=== PATIENT | female | born 2000 | race Caucasian/White ===

== ENCOUNTER 2024-01-18 00:15 | Inpatient (IN) | payer OTHER ==
[2024-01-18] MEDS ORDERED: Morphine 4 MG/ML VIAL ONE (00:37)
[2024-01-18] MEDS ORDERED: Ondansetron PF 4 MG/2 ML Vial ONE (00:37)
[2024-01-18 00:59] LABS: Hematocrit 33.1 % (34.9-44.5); Hemoglobin 11.9 g/dL (12.0-15.5); Mean Platelet Volume 8.3 fl (7.4-10.4); Platelet Count 137 10x3/uL (150-450); RBC Distribution Width 13.2 % (11.5-14.5); Red Blood Cell (RBC) Count 3.72 10x6/uL (3.90-5.03); White Blood Cell (WBC) Count 2.9 10x3/uL (3.5-10.5)
[2024-01-18 01:09] LABS: ALT (SGPT) 61 U/L (8-55); AST (SGOT) 60 U/L (5-34); Albumin 3.5 g/dL (3.5-5.0); Alkaline Phosphatase 49 U/L (40-110); Anion Gap 15 mmol/L (10-20); BUN (Urea Nitrogen) 8 mg/dL (7.0-18.7); Bilirubin, Total 0.9 mg/dL (0.2-1.2); Calc. Creatinine Clearance 0 mL/min (70-130); Calcium 8.4 mg/dL (7.8-10.44); Carbon Dioxide 15 mmol/L (22-29); Chloride 107 mmol/L (98-107); Estimated GFR 123; Globulin 2.4 g/dL (2.4-3.5); Glucose 131 mg/dL (70-105); Protein, Total 5.9 g/dL (6.0-8.3); Sodium 133 mmol/L (136-145)
[2024-01-18 01:15] LABS: MDiff Complete? YES
[2024-01-18 01:20] LABS: Band 67 % (5-11); Lymphocytes 9 % (21-51); Metamyelocyte 5 % (0-0); Neutrophil 19 % (42-75)
[2024-01-18 01:21] LABS: Reflex for Review?? YES
[2024-01-18 01:23] LABS: Platelet Adequacy Comment Appears Decreased; RBC Morph Comment Within Normal Limits; Toxic Granulation SLIGHT; Vacuoles SLIGHT
[2024-01-18] MEDS ORDERED: Acetaminophen 325 MG TAB ONE (01:44)
[2024-01-18 01:55] LABS: Bilirubin Neg (Negative); Blood, Urine 10 (Negative); Clarity Clear (Clear); Glucose, Urine (Dipstick) Normal (Negative); Ketone, Urine 5 mg/dL (Negative); Leukocyte Negative (Negative); Nitrite Negative (Negative); Protein, Urine (Dipstick) 30 mg/dl (Neg-Trace)
[2024-01-18 02:17] LABS: Bacteria/HPF 1+ HPF (None Seen); CAUTI Indications for Culture Pregnancy; RBC/HPF 0-3 HPF (0-3); Squamous Epithelial 0-3 HPF (0-3); WBC/HPF 0-3 HPF (0-3)
[2024-01-18 02:18] LABS: Urine Culture Reflex Yes Yes
[2024-01-18 02:31] LABS: Influenza A by NAA Not Detected (NotDetected); Influenza B by NAA Not Detected (NotDetected); SARS-CoV-2 NAA Rapid Test Not Detected (NotDetected)
[2024-01-18] MEDS ORDERED: Vancomycin 1 GM VIAL ONE (02:53)
[2024-01-18] MEDS ORDERED: Cefepime 2 GM VIAL ONE (02:53)
[2024-01-18] MEDS ORDERED: Piperacillin/Tazobactam 3.375 GM VIAL ONE ×2 (03:15→09:38)
[2024-01-18] MEDS ORDERED: Piperacillin/Tazobactam 3.375 GM in Sodium Chloride 0.9% 100 ML IVPB SCH (03:30)
[2024-01-18] MEDS ORDERED: [UNRECOGNIZED DRUG - REMARK] FS PRN (03:59)
[2024-01-18 04:31] LABS: Lactic Acid 1.5 mmol/L (0.5-2.2)
[2024-01-18 04:32] VITALS: BMI 28.0
[2024-01-18] MEDS: Fioricet 325/50/40 mg Tablet PO SCH (04:35)
[2024-01-18] MEDS: Sodium Chloride 0.9% 1,000 ML IV SCH (04:44)
[2024-01-18] MEDS: Vancomycin 1.5 GM, Admixture Fee 1 EACH in Sodium Chloride 0.9% 250 ML 300 ML IVPB SCH (04:45)
[2024-01-18] MEDS ORDERED: Vancomycin 1.5 GM in Sodium Chloride 0.9% 250 ML 300 ML IVPB SCH (04:45)
[2024-01-18] MEDS ORDERED: Morphine 2 MG/ML VIAL ONE (04:56)
[2024-01-18] MEDS: Morphine 2 MG/ML VIAL SLOW IVP PRN (04:59)
[2024-01-18 05:33] LABS: Magnesium 1.3 mg/dL (1.6-2.6)
[2024-01-18] MEDS ORDERED: Magnesium 2 GM/50 ML BAG (IN WATER) ONE (07:12)
[2024-01-18 07:15] LABS: INR-International Normal Ratio 1.1; PTT 30.4 sec (22.0-33.0); Prothrombin Time 11.8 sec (9.5-12.1)
[2024-01-18 07:19] LABS: Anion Gap 12 mmol/L (10-20); BUN (Urea Nitrogen) 6 mg/dL (7.0-18.7); Calc. Creatinine Clearance 150 mL/min (70-130); Calcium 7.4 mg/dL (7.8-10.44); Carbon Dioxide 15 mmol/L (22-29); Chloride 112 mmol/L (98-107); Estimated GFR 126; Glucose 170 mg/dL (70-105); Potassium 2.9 mmol/L (3.5-5.1); Sodium 136 mmol/L (136-145)
[2024-01-18] MEDS: Magnesium 2 GM/50 ML(in water) 2 GM in Premix 1 BAG IVPB SCH (07:35)
[2024-01-18 07:43] LABS: Hematocrit 25.9 % (34.9-44.5); Hemoglobin 9.1 g/dL (12.0-15.5); Mean Corpuscular HGB CONC 35.1 g/dL (32.0-36.0); Mean Corpuscular Hemoglobin 31.7 pg (27.0-33.0); Mean Corpuscular Volume 90.2 fl (81.6-98.3); Mean Platelet Volume 8.6 fl (7.4-10.4); Platelet Count 131 10x3/uL (150-450); RBC Distribution Width 13.6 % (11.5-14.5); Red Blood Cell (RBC) Count 2.87 10x6/uL (3.90-5.03); White Blood Cell (WBC) Count 8.6 10x3/uL (3.5-10.5)
[2024-01-18] MEDS ORDERED: HYDROcodone/Acetaminophen 5/325 mg Tablet ONE (07:48)
[2024-01-18] MEDS ORDERED: Ondansetron ODT 4 MG TAB ONE (07:49)
[2024-01-18 07:52] LABS: MDiff Complete? YES
[2024-01-18] MEDS: Ondansetron ODT 4 MG TAB PO PRN (07:54)
[2024-01-18 07:56] LABS: Band 15 % (5-11); Lymphocytes 2 % (21-51); Monocytes 3 % (0-10); Neutrophil 80 % (42-75)
[2024-01-18 08:10] LABS: Platelet Adequacy Comment Appears Decreased; RBC Morph Comment Within Normal Limits; Vacuoles SLIGHT
[2024-01-18] MEDS: Enoxaparin 40 MG (0.4 mL) SYRINGE SC SCH (08:33)
[2024-01-18] MEDS ORDERED: Potassium Chloride 20 MEQ TAB ONE (08:35)
[2024-01-18] MEDS: Potassium Chloride 20 MEQ TAB PO SCH (09:00)
[2024-01-18] MEDS: HYDROcodone/Acetaminophen 5/325 mg Tablet PO PRN (09:33)
[2024-01-18] MEDS: Lactated Ringer's 1,000 ML IV SCH (09:35)
[2024-01-18 09:36] LABS: Analyzer IN Cardio CS ER; Base Excess -7.6 mEq/L (-2 - +2); Calcium, Ionized (venous) 1.04 mmol/L (1.16-1.32); Chloride (VBG) 109 mmol/L (98-106); Hematocrit-VBG 34 % (36.0-47.0); Hemoglobin (Hb) 11.6 g/dL (11.7-15.5); Potassium (VBG) 3.45 mmol/L (3.70-5.30); Puncture Site Other Site; RapidComm Collect By LAB; Sodium 137 mmol/L (133-146); pH (venous) 7.389 (7.32-7.43)
[2024-01-18 09:46] LABS: Hematocrit 29.7 % (34.9-44.5); Hemoglobin 10.4 g/dL (12.0-15.5); Mean Corpuscular Hemoglobin 32.2 pg (27.0-33.0); Mean Platelet Volume 8.5 fl (7.4-10.4); Platelet Count 140 10x3/uL (150-450); RBC Distribution Width 13.5 % (11.5-14.5); Red Blood Cell (RBC) Count 3.23 10x6/uL (3.90-5.03); White Blood Cell (WBC) Count 9.9 10x3/uL (3.5-10.5)
[2024-01-18] MEDS: Piperacillin/Tazobactam 3.375 GM in Sodium Chloride 0.9% 100 ML IVPB SCH (09:55)
[2024-01-18 10:00] LABS: ALT (SGPT) 61 U/L (8-55); AST (SGOT) 57 U/L (5-34); Albumin 3.1 g/dL (3.5-5.0); Alkaline Phosphatase 37 U/L (40-110); Anion Gap 14 mmol/L (10-20); BUN (Urea Nitrogen) 6 mg/dL (7.0-18.7); Bilirubin, Total 1.5 mg/dL (0.2-1.2); Calc. Creatinine Clearance 145 mL/min (70-130); Carbon Dioxide 15 mmol/L (22-29); Chloride 112 mmol/L (98-107); Estimated GFR 125; Globulin 2.5 g/dL (2.4-3.5); Glucose 154 mg/dL (70-105); Magnesium 2.1 mg/dL (1.6-2.6); Potassium 3.6 mmol/L (3.5-5.1); Protein, Total 5.6 g/dL (6.0-8.3); Sodium 137 mmol/L (136-145)
[2024-01-18] MEDS ORDERED: Piperacillin/Tazobactam 4.5 GM in Sodium Chloride 0.9% 100 ML IVPB SCH (10:00)
[2024-01-18 10:17] LABS: PTT 30.9 sec (22.0-33.0); Prothrombin Time 11.1 sec (9.5-12.1)
[2024-01-18 10:52] LABS: Hep B Surf Ag Non-Reactive S/CO (NonReactive)
[2024-01-18 11:38] LABS: Hemoglobin A1c 4.6 % (4.0-6.0)
[2024-01-18] MEDS: Sodium Bicarbonate 150 MEQ in Dextrose 5% in Water 1,000 ML IV SCH (11:48)
[2024-01-18 12:00] LABS: HBCM Index 0.07 S/CO (0-0.79); Hep A IgM AB Non-Reactive S/CO (NonReactive); Hep C IgG Ab Non-Reactive S/CO (NonReactive); Hep C Index 0.08 S/CO (0-0.79); Hepatitis B Core IgM Abs Non-Reactive S/CO (NonReactive)
[2024-01-18 13:46] LABS: HBSAg Index 0.25 S/CO (0-0.99)
[2024-01-18] MEDS: Vancomycin 1 GM in Sodium Chloride 0.9% 250 ML 300 ML IVPB SCH (16:11)
[2024-01-18] MEDS: Ondansetron PF 4 MG/2 ML Vial IVP PRN (17:15)
[2024-01-18] MEDS: Acetaminophen 325 MG TAB PO PRN (17:55)
[2024-01-18] MEDS: Magnesium Oxide 400 MG TAB PO SCH (19:16)
[2024-01-18] MEDS: FLU VACC QS2023-24(6MOS UP)/PF 60 MCG/0.5 ML SYRINGE IM ONE (23:16)
[2024-01-19] MEDS ORDERED: Sodium Chloride 0.9% 1,000 ML IV SCH (02:45)
[2024-01-19 04:01] LABS: ALT (SGPT) 47 U/L (8-55); AST (SGOT) 41 U/L (5-34); Albumin 2.7 g/dL (3.5-5.0); Alkaline Phosphatase 40 U/L (40-110); Anion Gap 10 mmol/L (10-20); BUN (Urea Nitrogen) 7 mg/dL (7.0-18.7); Bilirubin, Total 2.2 mg/dL (0.2-1.2); Calc. Creatinine Clearance 165 mL/min (70-130); Calcium 8.1 mg/dL (7.8-10.44); Carbon Dioxide 19 mmol/L (22-29); Chloride 109 mmol/L (98-107); Estimated GFR 129; Globulin 2.1 g/dL (2.4-3.5); Glucose 99 mg/dL (70-105); Magnesium 1.8 mg/dL (1.6-2.6); Potassium 3.4 mmol/L (3.5-5.1); Protein, Total 4.8 g/dL (6.0-8.3); Sodium 135 mmol/L (136-145)
[2024-01-19] MEDS: Albumin 25% 25 GM (100 mL) BOT IVPB SCH (04:10)
[2024-01-19] MEDS: Lactated Ringer's 1,000 ML IV SCH (04:14)
[2024-01-19 04:17] LABS: HIV (1/2) Antibody/Antigen Non-Reactive (NonReactive); HIV 1/2 INDEX 0.09 S/CO (<1.00)
[2024-01-19 04:20] LABS: Hematocrit 27.4 % (34.9-44.5); Hemoglobin 9.8 g/dL (12.0-15.5); Mean Corpuscular HGB CONC 35.8 g/dL (32.0-36.0); Mean Corpuscular Hemoglobin 32.2 pg (27.0-33.0); Mean Corpuscular Volume 90.1 fl (81.6-98.3); Mean Platelet Volume 8.8 fl (7.4-10.4); Platelet Count 85 10x3/uL (150-450); RBC Distribution Width 13.9 % (11.5-14.5); Red Blood Cell (RBC) Count 3.04 10x6/uL (3.90-5.03); White Blood Cell (WBC) Count 2.8 10x3/uL (3.5-10.5)
[2024-01-19 04:36] LABS: MDiff Complete? YES
[2024-01-19 04:41] LABS: Band 22 % (5-11); Lymphocytes 14 % (21-51); Monocytes 7 % (0-10); Neutrophil 57 % (42-75)
[2024-01-19 04:43] LABS: Platelet Adequacy Comment Appears Decreased; RBC Morph Comment Within Normal Limits
[2024-01-19] MEDS: Potassium Chloride 20 MEQ TAB PO SCH (08:02)
[2024-01-19] MEDS: Polyethylene Glycol 3350 17 GM Packet PO SCH (08:24)
[2024-01-19 09:07] LABS: INR-International Normal Ratio 1.1; PTT 36.8 sec (22.0-33.0); Prothrombin Time 11.8 sec (9.5-12.1)
[2024-01-19] MEDS: Piperacillin/Tazobactam 3.375 GM in Sodium Chloride 0.9% 100 ML IVPB SCH (09:26)
[2024-01-19] MEDS: Clindamycin/D5W 900 MG in Premix 1 BAG IVPB SCH (09:35)
[2024-01-19 10:07] LABS: D-Dimer Test 17.98 mcg/mL (0.19-0.50)
[2024-01-19] MEDS: Hydrocortisone Sod Succ/PF 100 mg/2 ml Vial IVP SCH ×2 (10:39→15:35)
[2024-01-19] MEDS: NOREPINEPHRINE 8 MG/250 ML-D5W 250 ML IVPB SCH (10:39)
[2024-01-19 14:58] LABS: ALT (SGPT) 48 U/L (8-55); AST (SGOT) 44 U/L (5-34); Albumin 3.3 g/dL (3.5-5.0); Alkaline Phosphatase 47 U/L (40-110); Anion Gap 12 mmol/L (10-20); BUN (Urea Nitrogen) 4 mg/dL (7.0-18.7); Bilirubin, Total 2.1 mg/dL (0.2-1.2); Calc. Creatinine Clearance 171 mL/min (70-130); Calcium 8.4 mg/dL (7.8-10.44); Carbon Dioxide 16 mmol/L (22-29); Chloride 112 mmol/L (98-107); Estimated GFR 130; Globulin 2.2 g/dL (2.4-3.5); Glucose 139 mg/dL (70-105); Potassium 3.8 mmol/L (3.5-5.1); Protein, Total 5.5 g/dL (6.0-8.3); Sodium 136 mmol/L (136-145)
[2024-01-19 15:07] LABS: Hematocrit 27.6 % (34.9-44.5); Hemoglobin 9.8 g/dL (12.0-15.5); Mean Corpuscular HGB CONC 35.5 g/dL (32.0-36.0); Mean Corpuscular Volume 92.9 fl (81.6-98.3); Mean Platelet Volume 9.4 fl (7.4-10.4); Platelet Count 86 10x3/uL (150-450); RBC Distribution Width 13.7 % (11.5-14.5); Red Blood Cell (RBC) Count 2.97 10x6/uL (3.90-5.03); White Blood Cell (WBC) Count 4.3 10x3/uL (3.5-10.5)
[2024-01-19 16:50] LABS: Vancomycin, Trough 2.1 ug/mL
[2024-01-19 16:51] VITALS: BP 118/77; TEMP 98.9
[2024-01-19] MEDS ORDERED: Vancomycin 1.5 GRAM/300 ML BAG 1.5 GM in Premix 1 BAG IVPB SCH (20:00)
[2024-01-19] MEDS ORDERED: Docusate 100 MG CAP PO SCH (21:00)
== END 2024-01-19 19:17 | disposition short-term general hospital (02) | DRG 831 ==
LOC: CSHERS 00:15 → CSHERHOLD 03:13 → CSHICU 10:31
PROVIDERS: ADMIT Family Medicine; ATTEND Family Medicine
PROC: 3E03329 Introduction of Other Anti-infective into Peripheral Vein, Percutaneous Approach (ICD-10-PCS; principal; 2024-01-18)
PROC: 30233J1 Transfusion of Nonautologous Serum Albumin into Peripheral Vein, Percutaneous Approach (ICD-10-PCS; 2024-01-19)
PROC: 3E033XZ Introduction of Vasopressor into Peripheral Vein, Percutaneous Approach (ICD-10-PCS; 2024-01-19)
DX: O98.811 Other maternal infectious and parasitic diseases complicating pregnancy, first trimester (principal); A40.9 Streptococcal sepsis, unspecified; R65.21 Severe sepsis with septic shock; O99.111 Other diseases of the blood and blood-forming organs and certain disorders involving the immune mechanism complicating pregnancy, first trimester; O99.511 Diseases of the respiratory system complicating pregnancy, first trimester; J06.9 Acute upper respiratory infection, unspecified; O99.891 Other specified diseases and conditions complicating pregnancy; G43.909 Migraine, unspecified, not intractable, without status migrainosus; O26.51 Maternal hypotension syndrome, first trimester; R74.01 Elevation of levels of liver transaminase levels; E83.42 Hypomagnesemia; O99.011 Anemia complicating pregnancy, first trimester; Z88.1 Allergy status to other antibiotic agents; Z11.52 Encounter for screening for COVID-19; Z98.890 Other specified postprocedural states; Z3A.12 12 weeks gestation of pregnancy; Z90.49 Acquired absence of other specified parts of digestive tract
CPT/HCPCS: 36415; 76705; 76801; 76802; 76810; 76856; 80053; 80074; 80202; 81001; 82533; 82805; 83036; 83605; 83735; 84443; 85025; 85049; 85060; 85300; 85362; 85384; 85610; 85730; 86140; 86850; 86900; 86901; 87040; 87077; 87081; 87086; 87149; 87186; 87389; 87430; 93005; 93010; 93306; J0692; J1720; J2270; J2272; J2405; J2543; J3370; J3475; J3490; J7050; J7070; J7120; P9047; Q0162